=== PATIENT | female | born 1995 | race Caucasian/White ===

== ENCOUNTER 2018-07-12 10:19 | Emergency (ER) | payer BC, OTHER ==
--- NOTE | 2018-07-12 11:12 | UC ---
Headache HPI - HPI Summary HPI Summary: 23-year-old female presents with complaints of severe frontal headache for past 4 days. Her headache is associated with some photophobia and nausea. Has a history of migraines that typically occur with her menses. Generally treats with [id number] analgesics however has required treatment in the ED once about a year ago. States she has tried both acetaminophen and ibuprofen without relief. Denies fever, chills, visual disturbances, aura, confusion, slurred speech, facial droop, weakness, numbness, tingling of extremities, chest pain, shortness of breath, abdominal pain, or vomiting. - History Of Current Complaint Chief Complaint: UCHeadache Stated Complaint: MIGRAINES X 4 DAYS Time Seen by Provider: 07/12/18 10:46 Hx Obtained From: Patient Hx Last Menstrual Period: now ?: No Onset/Duration: Gradual Onset, Lasting Days - 4 Initially Headache Was: Moderate - 4 Pain Intensity: 7 Timing: Constant Character: Throbbing, Migraine Location of Headache: Frontal Aggravating Factor(s): Bright Lights Allevating Factor(s): Nothing Associated Signs And Symptoms: Positive: Nausea. Negative: Dizziness, Seizure, Vomiting, Sinus Pressure, Fever, Neck Pain, Neck Stiffness, Decreased LOC, Visual Changes - Allergies/Home Medications Allergies/Adverse Reactions: Allergies Allergy/AdvReac Type Severity Reaction Status Date / Time acetaminophen Allergy Tachycardia Verified 07/12/18 10:46 [From Excedrin Migraine] aspirin Allergy Tachycardia Verified 07/12/18 10:46 [From Excedrin Migraine] caffeine Allergy Tachycardia Verified 07/12/18 10:46 [From Excedrin Migraine] Home Medications: Home Medications Acetaminophen TAB* [Tylenol TAB*] 650 mg PO TID PRN 07/12/18 [History Confirmed 07/12/18] Ibuprofen TAB* [Motrin TAB* 400 MG] 400 mg PO BID PRN 07/12/18 [History Confirmed 07/12/18] PMH/Surg Hx/FS Hx/Imm Hx Previously Healthy: Yes Neurological History: Migraine - Surgical History Surgical History: None - Family History Known Family History: Positive: Cardiac Disease, Hypertension - Social History Occupation: Employed Full-time Lives: With Family Alcohol Use: Occasionally Substance Use Type: None Smoking Status (MU): Never Smoked Tobacco Have You Smoked in the Last Year: No Review of Systems Constitutional: Negative Skin: Negative Eyes: Photophobia ENT: Negative Respiratory: Negative Cardiovascular: Negative Gastrointestinal: Nausea Neurological: Headache Is Patient Immunocompromised?: No All Other Systems Reviewed And Are Negative: Yes Physical Exam Triage Information Reviewed: Yes Appearance: Well-Appearing, Well-Nourished, Pain Distress - Mildly uncomfortable Vital Signs: Initial Vital Signs Temp 98.7 F 07/12/18 10:33 Pulse 78 07/12/18 10:33 Resp 12 07/12/18 10:33 BP 113/68 07/12/18 10:33 Pulse Ox 100 07/12/18 10:33 Vital Signs Reviewed: Yes Eyes: Positive: Conjunctiva Clear. Negative: Discharge ENT: Positive: Pharynx normal, TMs normal, Uvula midline. Negative: Nasal congestion, Nasal drainage, Tonsillar swelling, Tonsillar exudate, Sinus tenderness Neck: Positive: Supple, Nontender, No Lymphadenopathy Respiratory: Positive: Lungs clear, Normal breath sounds, No respiratory distress Cardiovascular: Positive: RRR, No Murmur Abdomen Description: Positive: Nontender, No Organomegaly, Soft Musculoskeletal Exam: Normal Neurological Exam: Normal, Other - PERRLA. Cranial nerves II through XII grossly intact. Sensorimotor intact. Coordination intact. Skin Exam: Normal Re-Evaluation - Re-Evaluation First Eval Re-Evaluation Time: 12:21 Change: Improved Comment: Patient resting quietly. States headache has subsided. Denies nausea. VSS. Headache Course/Dx - Course Course Of Treatment: 23-year-old female with history of migraine headaches presents with 4 day history of migraine headache. On exam she was neurologically intact. She was given a 500 cc bolus of normal saline as well as IV ketorolac, diphenhydramine, and prochlorperazine that resulted in cessation of her headache. She is to follow-up with her primary care provider in 7 days. Warning symptoms requiring immediate medical attention or reviewed. Patient verbalized understanding and agrees with plan of care. - Differential Dx/Diagnosis Differential Diagnosis/HQI/PQRI: Migraine, Sinus Headache, Tension Headache Provider Diagnoses: Migraine headache without aura Discharge - Sign-Out/Discharge Documenting (check all that apply): Patient Departure All imaging exams completed and their final reports reviewed: No Studies - Discharge Plan Condition: Improved Disposition: HOME Patient Education Materials: Migraine Headache (ED) Forms: *Work Release Referrals: No Primary Care Phys,NOPCP [Primary Care Provider] - [facility] [Provider Group] - 7 Days Additional Instructions: Get plenty of rest and be sure to stay well-hydrated. Follow[facility]up at [facility] in [facility] days for recheck. Seek immediate medical attention in the emergency room if you have a sudden, severe headache, become weak or dizzy, have any visual disturbances, facial droop, slurring of speech, chest pain, shortness of breath, numbness or tingling in your extremities. - Billing Disposition and Condition Condition: IMPROVED Disposition: Home
[2018-07-12] MEDS: NS 0.9% 500 ML* 500 ML IV ONE (11:35)
[2018-07-12] MEDS: Ketorolac INJ* 30 MG/ML 1 ML VIAL IV PUSH ONE (11:35)
[2018-07-12] MEDS: diPHENhydraMINE IV* 50 MG/ML 1 ml VIAL (BENADRYL) IV ONE (11:38)
[2018-07-12] MEDS: PROCHLORPERAZINE INJ 5 MG/ML 2 ML VIAL IV ONE (11:52)
[2018-07-12 12:24] VITALS: BP 108/58
== END 2018-07-12 12:37 | disposition home or self-care (01) ==
LOC: UCCORT 10:19
DX: G43.009 Migraine without aura, not intractable, without status migrainosus (principal); Z88.6 Allergy status to analgesic agent
CPT/HCPCS: 96361; 96374; 96375; 99211; G0463; J0780; J1200; J1885

== ENCOUNTER 2019-12-24 16:43 | Inpatient (IN) | payer BC ==
[2019-12-24] MEDS ORDERED: Buffered Lidocaine 1% SYRIN* 1 ML/SYRINGE INTRADERM ONE (19:45)
[2019-12-24] MEDS ORDERED: Lactated Ringers 1000 ML Bag* 1,000 ML IV ONE (19:45)
[2019-12-24 19:58] LABS: Urine Benzodiazepine Screen None Detected (None Detect); Urine Opiates Screen None Detected (None Detect)
--- NOTE | 2019-12-24 19:58 | HP ---
General Information - Reason for Visit Contractions today, seen in office with VE 3-4cm and sent here to assess for labor. - General Information Maternal Age: 24 Grav: 1 Para: 0 SAB: 0 IEA: 0 Estimated Due Date: 01/08/20 Determined By: Early Ultrasound Maternal Blood Type and Rh: O Positive - Results this Serology/RPR Result: Non-Reactive Rubella Result: Immune HBsAg Result: Negative HIV Result: Negative GBS Culture Result: Negative Past Medical History Delivery History: See Records - No previous pregnancies Pertinent Past Medical History: See Records - Anxiety, syncopal episodes on occasion with needles or other procedures Pertinent Past Surgical History: See Records - [place] teeth Pertinent Family History: Non-Contributory - Antepartal Records Antepartal Records: Reviewed, Uncomplicated Review of Systems Constitutional: Uncomfortable CV Complaint: No Respiratory: Shortness of Breath: No Gastrointestinal: Nausea, Diarrhea Genitourinary: No Dysuria, No Bleeding, No Leaking Fluid Musculoskeletal: Contractions Neurological: No Headache, No Visual Changes Movement: Normal Exam Allergies/Adverse Reactions: Allergies No Known Allergies Allergy (Verified 12/24/19 19:17) BP 107/63 T 97.2 HR 83 RR 20 O2 100 - Measurements Height: 5 ft 3 in Weight: 237 lb Weight in lbs: 237.427674 Body Mass Index (BMI): 42.0 Pre- Weight: 190 lb Weight Gained This : 47 lbs and 0 ozs - Exam Breast: Breast Exam Deferred CVA: No CVA Tenderness Extremities: No Edema Heart: Normal Rhythm/Heart Sounds HEENT: No Significant Findings Lungs: Clear Bilaterally Rectal: Rectal Exam Deferred Reflexes: DTR 2+, - - no clonus Thyroid: - - WNL @ entry to care - Abdominal Exam Abdomen Exam: Non-Tender, Fundal Height Consistent with Dates Targeted Exam Findings Estimated Weight: 8lb Cervical Exam: 4cm, 5cm Effacement: 80% Station: -1 Presenting Part: Vertex Membrane Status: Intact Bleeding/Discharge: None EFM Findings - External Monitor Findings Baseline Heart Rate: 150 External Monitor Findings: Accelerations Present, No Pattern of Variable or Late Decelerations, Variability Moderate Contractions: Regular, Moderate Contraction Frequency: q 2-4 min Assessment/Plan - Assessment IUP @ 38+6 weeks gestation in early labor. No evidence acidemia. Intact membranes - Plan Plan: Admit - Anticipate Vaginal Delivery Plan Comment: Admit to L&D. Patient may desire pain management. Discussed starting IV before very strong labor in case she desires epidural; patient in agreement. - Date/Time of Admission Date of Admission: 12/24/19 Time of Admission: 18:11
[2019-12-24 21:56] LABS: ABS Eosinophils 0.1 10^3/ul (0-0.6); ABS Lymphocytes 1.6 10^3/ul (1.0-4.8); ABS Neutrophils 10.5 10^3/ul (1.5-7.7); Eosinophil % 0.5 %; Hematocrit 39 % (35-47); Hemoglobin 13.5 g/dL (12.0-16.0); Lymphocyte % 12.5 %; Mean Corpuscular HGB Conc 35 g/dL (31-36); Mean Corpuscular Hemoglobin 32 pg (27-31); Mean Corpuscular Volume 93 fL (80-97); Mean Platelet Volume 10.2 fL (7.4-10.4); Platelet Count 170 10^3/uL (150-450); Red Cell Distribution Width 14 % (10-15); White Blood Count 13.2 10^3/uL (3.5-10.8)
[2019-12-24] MEDS ORDERED: OBEPIDURAL* 250 ML EPIDURAL ONE (21:58)
[2019-12-24] MEDS ORDERED: Lidocaine 1.5% EPI 1:200,000* 30 ML SDV ONE (22:21)
[2019-12-24 23:31] LABS: Urine Benzodiazepine Screen None Detected (None Detect); Urine Opiates Screen None Detected (None Detect)
[2019-12-24] MEDS ORDERED: Famotidine TAB* 20 MG PO PRN (23:38)
[2019-12-24] MEDS ORDERED: EPHEDrine (Pressors)* 50 MG/ML VIAL IV PUSH PRN (23:38)
[2019-12-24] MEDS ORDERED: Sodium Citrate/Citric Acid* 15 ML UDC PO PRN (23:38)
[2019-12-24] MEDS ORDERED: Phenylephrine 40 MCG/ML SYRINGE IV PUSH PRN (23:38)
[2019-12-24] MEDS ORDERED: OBEPIDURAL* 250 ML EPIDURAL SCH (23:45)
--- NOTE | 2019-12-25 00:18 | PN ---
Progress Note - Progress Note Date of Service: 12/25/19 Note: S: Patient reports that she doesn't feel like epidural has given her any relief from pain. Feeling back pain more constantly and low abdomen pain with contractions. O: VE 7cm/90/0 FHT 145, +accels, no decels, mod josef UCs q 2-3 min VSS, afebrile A: IUP @ 38+0 weeks gestation in active labor Doubt acidemia Intact membrane P: Will contact anesthesia to consider bolus. Encouraged to use patient button as frequently as possible to increase pain relief.
[2019-12-25] MEDS: Lactated Ringers 1000 ML Bag* 1,000 ML IV SCH ×2 (03:58→11:57)
--- NOTE | 2019-12-25 07:53 | PN ---
Progress Note - Progress Note Date of Service: 12/25/19 Note: S: Reports she has good relief from epidural finally, left side a little more numb than right. Feeling more low pressure, thought catheter balloon was "moving ". Vomited. O: 8cm/100/vtx +1 FHT: 150, +accels, mod josef, possible rare variable decels vs difficulty tracing UCs q 2-4 min VSS, afebrile A: IUP @ 39+0 weeks gestation in active labor Intact membrane Doubt acidemia P: Encourage side to side position changes with peanut ball as tolerated. Discussed "labor down" until increased sensation. Anticipate progression to SVB.
--- NOTE | 2019-12-25 10:15 | PN ---
Progress Note - Progress Note Date of Service: 12/25/19 SOAP: Subjective: Pt was comfortable but epidural stopped infusing so becoming more uncomfortable , reports back pain. and mother at bedside. Objective: FHR: Baseline 145/ moderate variability/ + accels/ no decels UCs: when tracing were every 3-4 minutes, currently not tracing well, will readjust monitors when pt more comfortable Cervix: 7-8 cm/ 100%/ 0 station/ vtx Amniotic fluid clear post AROM BP: 116/72, temp: 97.5 Assessment: Pt making slow progress. No evidence of acidemia or chorioamnionitis. Was reasonably comfortable with epidural, but has increasing pain since bag complete. Plan: Anesthesiologist Dr. Burgess at bedside to restart and bolus epidural. AROM performed to clear fluid. Will recheck in 2 hours or as needed, consider Pitocin augmentation if change is minimal at that time.
--- NOTE | 2019-12-25 11:25 | PN ---
Progress Note - Progress Note Date of Service: 12/25/19 Note: Pt very uncomfortable, reports significant back pain. Cervical exam unchanged from previous. FHR Category I. Anesthesia notified, will come evaluate to see if pt can be made more comfortable. Will try low dose Pitocin.
[2019-12-25] MEDS ORDERED: Ondansetron INJ* 2 MG/ML VIAL IV ONE (11:44)
[2019-12-25] MEDS ORDERED: Ondansetron INJ* 2 MG/ML VIAL ONE (11:47)
[2019-12-25] MEDS ORDERED: fentaNYL* 50 MCG/ML 2 ML VIAL (100 MCG VIAL) IV SLOW PU ONE (11:51)
[2019-12-25] MEDS ORDERED: fentaNYL* 50 MCG/ML 2 ML VIAL (100 MCG VIAL) ONE (11:56)
[2019-12-25] MEDS ORDERED: Oxytocin in LR* 20 UNITS/1,000 ML BAG IVPB SCH ×2 (12:00→23:00)
--- NOTE | 2019-12-25 12:08 | PN ---
Progress Note - Progress Note Date of Service: 12/25/19 Note: Pt's epipdural catheter became completely dislodged. Pt declined to have epidural replaced. Nitrous oxide attempted without adequate relief. Single dose of IV Fentanyl 50 mcg administered. Pt now requesting intrathecal, anesthesia paged. FHR remains Category I. Cervix unchanged. Pt agreed to start low dose Pitocin to augment labor.
[2019-12-25] MEDS ORDERED: Bupivacaine 0.25% SDV PF* 10 ML VIAL INJ ONE (12:20)
--- NOTE | 2019-12-25 14:35 | PN ---
Progress Note - Progress Note Date of Service: 12/25/19 SOAP: Subjective: Pt now very comfortable following combined spinal/ epidural. Slept for an hour or so. at bedside. Objective: Cervix: 9cm/ 100%/ +1/ vtx Fluid clear FHR: Baseline 135/ moderate variability/ + accels/ single isolated variable decel UCs: 1-2 minutes Pitocin turned off Assessment: Pt now comfortable. No evidence of acidemia or chorioamnionitis. Pt has made good cervical change. Plan: Recheck in 2 hours or as needed. If no change, will place IUPC and restart Pitocin. Anticipate .
--- NOTE | 2019-12-25 17:38 | PN ---
Progress Note - Progress Note Date of Service: 12/25/19 Note: Pt fully dilated, +1, vtx. Pt still very comfortable. FHR Category I. Pt requests 30-45 minutes to rest prior to starting to push. Advised okay as long as FHR remains Category I. Will do trial of pushing when pt is ready.
[2019-12-25] MEDS ORDERED: Famotidine TAB* 20 MG PO PRN (19:34)
[2019-12-25] MEDS ORDERED: Phenylephrine 40 MCG/ML SYRINGE IV PUSH PRN ×2 (19:34)
[2019-12-25] MEDS ORDERED: Sodium Citrate/Citric Acid* 15 ML UDC PO PRN (19:34)
[2019-12-25] MEDS ORDERED: Lactated Ringers 1000 ML Bag* 1,000 ML IV ONE (19:34)
[2019-12-25] MEDS ORDERED: Lactated Ringers 1000 ML Bag* 1,000 ML IV SCH ×2 (20:00→23:00)
[2019-12-25] MEDS ORDERED: OBEPIDURAL* 250 ML EPIDURAL SCH (20:00)
[2019-12-25] MEDS ORDERED: Methylergonovine INJ* 0.2 MG/ML 1ML AMP ONE (20:57)
[2019-12-25] MEDS ORDERED: Misoprostol TAB* 200 MCG ONE (21:33)
[2019-12-25] MEDS ORDERED: Glycerin ADULT SUPP PR PRN (22:24)
[2019-12-25] MEDS ORDERED: Witch Hazel PAD* JAR TOPICAL PRN (22:24)
[2019-12-25] MEDS ORDERED: Acetaminophen TAB* 325 MG PO PRN (22:24)
[2019-12-25] MEDS ORDERED: Measles, Mumps,Rubella VACC* 0.5 ML/VIAL SUBCUT ONE (22:24)
[2019-12-25] MEDS ORDERED: Misoprostol TAB* 200 MCG PR ONE (22:24)
[2019-12-25] MEDS ORDERED: Dibucaine 1% 28.35 GM TUBE PR PRN (22:24)
[2019-12-25] MEDS ORDERED: Methylergonovine INJ* 0.2 MG/ML 1ML AMP IM ONE (22:24)
[2019-12-26 06:40] LABS: ABS Basophils 0.1 10^3/ul (0-0.2); ABS Lymphocytes 1.3 10^3/ul (1.0-4.8); ABS Monocytes 1.5 10^3/ul (0-0.8); ABS Neutrophils 15.6 10^3/ul (1.5-7.7); Eosinophil % 0.2 %; Hematocrit 30 % (35-47); Hemoglobin 10.5 g/dL (12.0-16.0); Lymphocyte % 7.1 %; Mean Corpuscular HGB Conc 35 g/dL (31-36); Mean Corpuscular Hemoglobin 32 pg (27-31); Mean Corpuscular Volume 93 fL (80-97); Mean Platelet Volume 9.9 fL (7.4-10.4); Platelet Count 151 10^3/uL (150-450); Red Blood Count 3.25 10^6 /uL (3.70-4.87); Red Cell Distribution Width 13 % (10-15); White Blood Count 18.5 10^3/uL (3.5-10.8)
[2019-12-26] MEDS: Ibuprofen TAB* 600 MG PO PRN ×3 (07:36→19:29)
[2019-12-26] MEDS: Docusate CAP* 100 MG PO SCH ×3 (07:36→19:29)
[2019-12-26] MEDS ORDERED: Ferrous Gluconate TAB* 324 MG TAB PO SCH (09:00)
--- NOTE | 2019-12-26 09:50 | PROCNOTE ---
[facility] OB: Delivery Note - Delivery A Date of : 12/25/19 Time of : 20:38 [place] Sex: Male Weight at : 3.799 kg Score 1 Minute: 9 Score 5 Minutes: 9 Gestational Age in Weeks and Days at Delivery: 38 Weeks and 0 Days Delivery Method: Spontaneous Vaginal Labor: Spontaneous Did Patient attempt ?: N/A, No Previous Amniotic Fluid: Clear Estimated Blood Loss: 500 Anesthesia/Analgesia: CEI for Labor Delivered By: Kristi Young - Nursery Level of Nursery: Regular/Bedside - Perineum Perineal Injury: 1st Degree Perineal Injury Comment: small, hemostatic 1st degree, pt with strong preference to avoid sutures Perineal Repair: None - Events Delivery Events of Note: Pitocin During Labor, Post- Bleeding - Meds Given - Risk for Falls Delivered OB Patient- Risk for Falls: Heavy Bleeding Fall Risk: Patient is at High Risk for Falls - Additional Delivery Notes Additional Delivery Notes: Pt admitted to L&D in early active labor. Labor continued to progress slowly but steadily. Pt eventually requested and received an epidural. Epidural did not provide adequate pain relief and eventually became dislodged. Pt then briefly utilized nitrous oxide and then IV Fentanyl before agreeing to another try at the epidural. At that time received combined spinal/ epidural with excellent relief of pain. Eventually pt reached full dilation and was coached through pushing. Pt had very limited sensation and so anesthesiologist requested to reduce rate of epidural which worked well. tachycardia noted , but pt was afebrile and making good progress so continued to push. Pt pushed with steady descent, eventually reaching stage. Pt coached through slow, controlled delivery of the head. Shoulders followed with gentle traction. Infant dried and stimulated prior to placing on blanket on maternal abdomen per her request, responded with vigorous cry and good tone. Placenta soon delivered with gentle cord traction and Pitocin increased to 250 cc/ hr. Pt with heavy bleeding initially, and cytotec 800 mcg given [place] as well as fundal massage. Bleeding continued so IM methergine given, after which time bleeding was minimal. Inspection of the perineum revealed small hemostatic, well approximated 1st degree laceration. Pt with strong preference to avoid sutures if possible, so left unrepaired. held by father and grandmother for a time, then pt did skin to skin with infant. Mother and infant stable at this time, anticipate normal course.
--- NOTE | 2019-12-26 17:41 | PTEDU ---
Patient Name: SALVATORE PARRA SALVATORE PARRA selected video: Never Ever Shake a Baby to view on 12/26/2019 at 5:40:37 PM from [email or web address] [id number]
[2019-12-27 08:04] VITALS: BP 102/74
[2019-12-27] MEDS: Ibuprofen TAB* 600 MG PO PRN (09:56)
[2019-12-27] MEDS: Docusate CAP* 100 MG PO SCH (09:56)
== END 2019-12-27 13:12 | disposition home or self-care (01) | DRG 560 ==
LOC: MCHOBOUT 16:43 → MCHOB 18:11
PROVIDERS: ADMIT Midwife; ATTEND Midwife
PROC: 10E0XZZ Delivery of Products of Conception, External Approach (ICD-10-PCS; principal; 2019-12-25)
PROC: 10907ZC Drainage of Amniotic Fluid, Therapeutic from Products of Conception, Via Natural or Artificial Opening (ICD-10-PCS; 2019-12-25)
DX: O60.20X0 Term delivery with preterm labor, unspecified trimester, not applicable or unspecified (principal); O72.1 Other immediate postpartum hemorrhage; Z37.0 Single live birth; O99.344 Other mental disorders complicating childbirth; F41.9 Anxiety disorder, unspecified; O70.0 First degree perineal laceration during delivery; Z3A.38 38 weeks gestation of pregnancy
CPT/HCPCS: 36415; 80307; 85025; 86850; 86900; 86901; A9270-GY; G0480; J2210; J2405; J3010; J3490

== ENCOUNTER 2020-01-17 21:28 | Emergency (ER) | payer BC, OTHER ==
[2020-01-17] MEDS ORDERED: Acetaminophen TAB* 325 MG PO ONE (21:37)
[2020-01-17 22:00] LABS: ABS Eosinophils 0.2 10^3/ul (0-0.6); ABS Lymphocytes 1.1 10^3/ul (1.0-4.8); ABS Monocytes 0.7 10^3/ul (0-0.8); ABS Neutrophils 8.5 10^3/ul (1.5-7.7); Eosinophil % 1.4 %; Hematocrit 34 % (35-47); Hemoglobin 11.8 g/dL (12.0-16.0); Lymphocyte % 10.3 %; Mean Corpuscular HGB Conc 35 g/dL (31-36); Mean Corpuscular Hemoglobin 32 pg (27-31); Mean Corpuscular Volume 91 fL (80-97); Mean Platelet Volume 9.1 fL (7.4-10.4); Platelet Count 214 10^3/uL (150-450); Red Blood Count 3.69 10^6 /uL (3.70-4.87); Red Cell Distribution Width 13 % (10-15); White Blood Count 10.5 10^3/uL (3.5-10.8)
[2020-01-17 22:11] LABS: Activated Partial Thrombo Time 34.8 seconds (26.0-38.0); INR 1.09 (0.82-1.09)
[2020-01-17 22:19] LABS: Albumin/Globulin Ratio 1.4 (1-3); BUN/Creatinine Ratio 11.2 (8-20); EGFR African American 85.1 (>60); EGFR Non-African American 70.3 (>60); Globulin 2.9 g/dL (2-4); Potassium 3.5 mmol/L (3.5-5.0); Total Bilirubin 0.8 mg/dL (0.2-1.0); Total Protein 6.9 g/dL (6.4-8.9)
--- NOTE | 2020-01-17 22:52 | ED ---
Headache - HPI Summary HPI Summary: This patient is a 24 year old F presenting to [facility] with a chief complaint of DUCKWORTH since two days ago. Pt recently gave vaginally 3 weeks ago. She felt fine after the . Pt has had short 20 second pounding headaches. She reports it was worse with light, and sometimes at night. Then for the past 2 days pt has had a constant migraine. Then her neck pain increased recently, especially to look left, right and down. Pt had felt sore all over. Pt also reports freezing, sweating, postnasal drip, chills and fever. Patient reports nausea. Patient denies cough, vomiting, diarrhea. Pt had two epidurals during . Home Medications Medication Instructions Recorded Confirmed Type Acetaminophen TAB* [Tylenol TAB*] 650 mg PO Q4H PRN tab 12/27/19 01/17/20 Rx Ibuprofen TAB* [Motrin TAB* 600 MG] 600 mg PO Q6H PRN tab 12/27/19 01/17/20 Rx - History Of Current Complaint Chief Complaint: EDFever Stated Complaint: 3 POST /HEADACHE/NECK PAIN PER PT Time Seen by Provider: 01/17/20 22:28 Hx Obtained From: Patient Hx Last Menstrual Period: now Onset/Duration: Gradual Onset, Started days ago, Still Present Initially Headache Was: Moderate Currently Pain Is: Moderate Timing: Constant, Hours Character: Migraine Aggravating Factor: Nothing Allevating Factors: Nothing Associated Signs And Symptoms: Nausea, Neck Pain, Neck Stiffness - Allergies/Home Medications Allergies/Adverse Reactions: Allergies Allergy/AdvReac Type Severity Reaction Status Date / Time No Known Allergies Allergy Verified 12/24/19 19:17 Home Medications: Home Medications Acetaminophen TAB* [Tylenol TAB*] 650 mg PO Q4H PRN tab 12/27/19 [Rx Confirmed 01/17/20] Ibuprofen TAB* [Motrin TAB* 600 MG] 600 mg PO Q6H PRN tab 12/27/19 [Rx Confirmed 01/17/20] PMH/Surg Hx/FS Hx/Imm Hx Opthamlomology History: Denies: Hx Legally Blind EENT History: Denies: Hx Deafness Psychiatric History: Reports: Hx Anxiety Infectious Disease History: No Infectious Disease History: Denies: Traveled Outside the [place] in Last 30 Days - Family History Known Family History: Positive: Cardiac Disease, Hypertension - Social History Lives: With Family Alcohol Use: None Alcohol Amount: social prior to Substance Use Type: Reports: None Smoking Status (MU): Never Smoked Tobacco Have You Smoked in the Last Year: No Review of Systems Positive: Fever, Chills, Skin Diaphoresis Positive: Nasal Discharge Negative: Cough Positive: Nausea. Negative: Vomiting, Diarrhea Positive: Other - body pain, neck pain Positive: Headache All Other Systems Reviewed And Are Negative: Yes Physical Exam - Summary Physical Exam Summary: Appearance: Well-appearing, Well-nourished, lying in bed comfortably Skin: Warm, dry, no obvious rash Eyes: sclera anicteric, no conjunctival pallor HENT: mucous membranes moist, pharynx appears normal Neck: pt has pain with rotating or flexing neck, no kernig's or brudzinski's sign Respiratory: Clear to auscultation, no signs of respiratory distress Cardiovascular: Normal S1, S2. No murmurs. Normal distal pulses in tibial and radial bilaterally. Abdomen: Soft, nontender, normal active bowel sounds present Musculoskeletal: Normal, Strength/ROM Intact Neurological: A&Ox3, awake and alert, mentation is normal, speech is fluent and appropriate Psychiatric: affect is normal, does not appear anxious or depressed Triage Information Reviewed: No Vital Signs On Initial Exam: Initial Vitals Temp Pulse Resp BP Pulse Ox 100.8 F 108 20 103/73 98 01/17/20 21:30 01/17/20 21:30 01/17/20 21:30 01/17/20 21:30 01/17/20 21:30 Vital Signs Reviewed: No Procedures - Sedation Patient Received Moderate/Deep Sedation with Procedure: No - Lumbar Puncture Midline Position: Sitting Aseptic Technique: Local Anesthesia Anesthesia Used: 1.0% Lido Spinal Needle Used: 22 Gauge Lumbar Puncture Note: initial fluid somewhat bloody but clear by second tube. Diagnostics - Vital Signs Vital Signs Temp Pulse Resp BP Pulse Ox 01/17/20 21:30 100.8 F 108 20 103/73 98 - Laboratory Lab Results: Lab Results 01/17/20 01/17/20 01/17/20 Range/Units 21:52 21:52 21:52 WBC 10.5 (3.5-10.8) 10^3/uL RBC 3.69 L (3.70-4.87) 10^6 /uL Hgb 11.8 L (12.0-16.0) g/dL Hct 34 L (35-47) % MCV 91 (80-97) fL MCH 32 H (27-31) pg MCHC 35 (31-36) g/dL RDW 13 (10-15) % Plt Count 214 (150-450) 10^3/uL MPV 9.1 (7.4-10.4) fL Neut % (Auto) 81.3 % Lymph % (Auto) 10.3 % [place] % (Auto) 6.8 % Eos % (Auto) 1.4 % Baso % (Auto) 0.2 % Absolute Neuts (auto) 8.5 H (1.5-7.7) 10^3/ul Absolute Lymphs (auto) 1.1 (1.0-4.8) 10^3/ul Absolute Monos (auto) 0.7 (0-0.8) 10^3/ul Absolute Eos (auto) 0.2 (0-0.6) 10^3/ul Absolute Basos (auto) 0.0 (0-0.2) 10^3/ul Absolute Nucleated RBC 0.0 10^3/ul Nucleated RBC % 0.0 INR (Anticoag Therapy) 1.09 (0.82-1.09) APTT 34.8 (26.0-38.0) seconds Sodium 137 (135-145) mmol/L Potassium 3.5 (3.5-5.0) mmol/L Chloride 105 (101-111) mmol/L Carbon Dioxide 24 (22-32) mmol/L Anion Gap 8 (2-11) mmol/L BUN 11 (6-24) mg/dL Creatinine 0.98 H (0.51-0.95) mg/dL Est GFR ( Amer) 85.1 (>60) Est GFR (Non-Af Amer) 70.3 (>60) BUN/Creatinine Ratio 11.2 (8-20) Glucose 91 (70-100) mg/dL Lactic Acid (0.5-2.0) mmol/L Calcium 9.0 (8.6-10.3) mg/dL Total Bilirubin 0.80 (0.2-1.0) mg/dL AST 17 (13-39) U/L ALT 21 (7-52) U/L Alkaline Phosphatase 96 (34-104) U/L Troponin I 0.00 (<0.03) ng/mL Total Protein 6.9 (6.4-8.9) g/dL Albumin 4.0 (3.2-5.2) g/dL Globulin 2.9 (2-4) g/dL Albumin/Globulin Ratio 1.4 (1-3) 01/17/20 Range/Units 21:52 WBC (3.5-10.8) 10^3/uL RBC (3.70-4.87) 10^6 /uL Hgb (12.0-16.0) g/dL Hct (35-47) % MCV (80-97) fL MCH (27-31) pg MCHC (31-36) g/dL RDW (10-15) % Plt Count (150-450) 10^3/uL MPV (7.4-10.4) fL Neut % (Auto) % Lymph % (Auto) % [place] % (Auto) % Eos % (Auto) % Baso % (Auto) % Absolute Neuts (auto) (1.5-7.7) 10^3/ul Absolute Lymphs (auto) (1.0-4.8) 10^3/ul Absolute Monos (auto) (0-0.8) 10^3/ul Absolute Eos (auto) (0-0.6) 10^3/ul Absolute Basos (auto) (0-0.2) 10^3/ul Absolute Nucleated RBC 10^3/ul Nucleated RBC % INR (Anticoag Therapy) (0.82-1.09) APTT (26.0-38.0) seconds Sodium (135-145) mmol/L Potassium (3.5-5.0) mmol/L Chloride (101-111) mmol/L Carbon Dioxide (22-32) mmol/L Anion Gap (2-11) mmol/L BUN (6-24) mg/dL Creatinine (0.51-0.95) mg/dL Est GFR ( Amer) (>60) Est GFR (Non-Af Amer) (>60) BUN/Creatinine Ratio (8-20) Glucose (70-100) mg/dL Lactic Acid 0.6 (0.5-2.0) mmol/L Calcium (8.6-10.3) mg/dL Total Bilirubin (0.2-1.0) mg/dL AST (13-39) U/L ALT (7-52) U/L Alkaline Phosphatase (34-104) U/L Troponin I (<0.03) ng/mL Total Protein (6.4-8.9) g/dL Albumin (3.2-5.2) g/dL Globulin (2-4) g/dL Albumin/Globulin Ratio (1-3) Result Diagrams: 01/17/20 21:52 01/17/20 21:52 Lab Statement: Any lab studies that have been ordered have been reviewed, and results considered in the medical decision making process. - Radiology CXR Radiology Interpretation Completed By: ED Physician Summary of Radiographic Findings: CXR reveals, per ED physician no acute process. Pending official radiology report. Re-Evaluation - Re-Evaluation First Eval Re-Evaluation Time: 01:30 Comment: Discussed results with pt. Headache Course/Dx - Course Course Of Treatment: This patient is a 24 year old F presenting to [facility] with a chief complaint of DUCKWORTH since two days ago. Pt recently gave vaginally 3 weeks ago. She felt fine after the . Pt has had short 20 second pounding headaches. She reports it was worse with light, and sometimes at night. Then for the past 2 days pt has had a constant migraine. Then her neck pain increased recently, especially to look left, right and down. Pt had felt sore all over. Pt also reports freezing, sweating, postnasal drip, chills and fever. Patient reports nausea. Patient denies cough, vomiting, diarrhea. Pt had two epidurals during . Physical Exam Findings are normal except pt has pain with rotating or flexing neck, no kernig's or brudzinski's sign. Test results with no significant abnormalities except for RBC 3.69, Hgb is 11.8, Hct is 34, MCH is 32, and Creatinine is 0.98. CXR reveals, per ED physician no acute process. In the ED course the patient was given acetaminophen. Patient will be discharged. The patient is agreeable with this plan. - Diagnoses Provider Diagnoses: Fever, Headache Discharge ED - Sign-Out/Discharge Documenting (check all that apply): Patient Departure - Discharge - Discharge Plan Condition: Good Disposition: HOME Patient Education Materials: Fever in Adults (ED) Referrals: [facility] [Outside] Additional Instructions: Fortunately the spinal fluid that we examined did not show evidence of infection in the central nervous system, like meningitis. The exact cause of the fever and what type of infection you are developing is not clear right now, as the other tests we ran are all negative. For now I will ask you to rest over the weekend at home and pay attention to your body. You can care for your infant as you do now, but I would also ask that you check baby's temperature twice a day for the next week or so - if baby has a fever (more than 100.4) you should call your plastics design engineer immediately. We will be checking on the blood cultures we took over the next few days and will contact you if they turn positive. - Billing Disposition and Condition Condition: GOOD Disposition: Home - Attestation Statements Document Initiated by Immanuel: Yes Documenting Scribe: Katrina Duarte Provider For Whom Immanuel is Documenting (Include Credential): Tone Elias MD Scribe Attestation: Katrina Benitez, scribed for Tone Elias MD on 01/18/20 at 0430. Scribe Documentation Reviewed: Yes Provider Attestation: The documentation as recorded by the Katrina francisco accurately reflects the service I personally performed and the decisions made by , Tone Elias MD Status of Scribe Document: Viewed
[2020-01-17 23:30] LABS: Influenza A Molecular Negative (Negative); Influenza B Molecular Negative (Negative)
[2020-01-17] MEDS ORDERED: Lidocaine 1% INJ* 10 MG/ML 30 ML SDV ONE ×2 (23:34→23:41)
[2020-01-18 00:04] LABS: Body Fluid Source Cerebral Spinal
[2020-01-18 00:30] LABS: CSF Glucose 68 mg/dL (40-70)
[2020-01-18 02:05] VITALS: BP 127/76
== END 2020-01-18 02:04 | disposition home or self-care (01) ==
LOC: ED 21:28
DX: R50.9 Fever, unspecified (principal); R51 Headache; M54.2 Cervicalgia
CPT/HCPCS: 36415; 71046; 80053; 82945; 83605; 84157; 84484; 85025; 85610; 85730; 87040; 87070; 87205; 89051; 99282; A9270-GY